=== PATIENT | male | born 1995 | race Caucasian/White ===

== ENCOUNTER 2018-07-16 18:29 | Emergency (ER) | payer OTHER ==
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
[2018-07-16 19:33] LABS: PLATELET COUNT 181 10^3/uL (150-400)
[2018-07-16] MEDS ORDERED: IOPAMIDOL (ISOVUE-300) 100 ML BTL ONE (19:33)
[2018-07-16 19:47] LABS: INR 0.98 (0.83-1.16); PROTIME(PATIENT) 13.2 SEC (12.0-15.0)
[2018-07-16] MEDS ORDERED: KETOROLAC 15 MG/1 ML SDV IVP ONE (21:11)
[2018-07-16 21:44] VITALS: BP 127/84
== END 2018-07-16 21:45 | disposition home or self-care (01) ==
DX: S22.050A Wedge compression fracture of T5-T6 vertebra, initial encounter for closed fracture (principal); S22.060A Wedge compression fracture of T7-T8 vertebra, initial encounter for closed fracture; S80.211A Abrasion, right knee, initial encounter; S80.212A Abrasion, left knee, initial encounter; W13.2XXA Fall from, out of or through roof, initial encounter; Y99.8 Other external cause status
CPT/HCPCS: 96374; G0480; J1885; Q9967